=== PATIENT | female | born 1980 | race Native Hawaiian/Other Pacific Islander ===

== ENCOUNTER 2016-11-15 04:51 | Emergency (ER) | payer MEDICAID ==
[~2016-11-15] VITALS: Ht 172.7 cm; Wt 129.3 kg
[2016-11-15 07:16] LABS: Urine RBC None Seen /hpf (0 - 4)
[2016-11-15 07:21] LABS: Basophils # (auto) 0 uL; Basophils % (auto) 0.3 % (0.0-2.0); CONDITION Y; Eosinophils # (auto) 0.5 uL; Hematocrit 43.5 % (36.0-46.0); Hemoglobin 14.4 g/dL (12.2-16.2); Lymphocytes # (auto) 1.7 uL; Lymphocytes % (auto) 19.1 % (10.0-50.0); Mean Corpuscular Hemoglobin 29.3 pg (28.0-32.0); Mean Corpuscular Hgb Conc. 33.2 g/dL (32.0-36.0); Mean Corpuscular Volume 88.3 fL (80.0-100.0); Mean Platelet Volume 9.1 fL (7.4-10.4); Monocytes # (auto) 0.4 uL; Monocytes % (auto) 4.8 % (0.0-12.0); Neutrophils # (auto) 6.4 uL; Neutrophils % (auto) 70.8 % (37.0-80.0); Platelet Count (auto) 298 10^3/uL (140-450); Red Cell Distribution Width 14.1 % (11.6-16.0)
[2016-11-15 07:41] LABS: INR 0.92 (0.9-1.15); Partial Thromboplastin Time 29.2 sec (22.64-33.71)
[2016-11-15 07:43] VITALS: BP 148/104
[2016-11-15 07:48] LABS: Urine Bilirubin Negative (Negative); Urine Blood Negative /uL (Negative); Urine Color Yellow (Yellow); Urine Glucose Normal (Normal); Urine Ketone Negative (Negative); Urine Nitrite Negative (Negative); Urine Squamous Epithelial Cell FEW /hpf (<5); Urine Urobilinogen Normal (Negative); Urine pH 5.5 (5.0-8.0)
[2016-11-15 07:49] LABS: Albumin 3.3 g/dL (3.4-5.0); Amylase 53 U/L (25-115); Anion Gap 8 (5-15); Aspartate Aminotransferase 12 U/L (15-37); BUN/Creatinine Ratio 18.4; Blood Urea Nitrogen 14 mg/dL (7-18); Calcium 8.8 mg/dL (8.5-10.1); Carbon Dioxide 23 mmol/L (21-32); Chloride 111 mmol/L (98-107); GFR African American 111 mL/min; GFR Non-African American 92 mL/min; Glucose 102 mg/dL (74-106); Potassium 4.4 mmol/L (3.5-5.1); Sodium 142 mmol/L (136-145)
[2016-11-15 07:53] LABS: Alkaline Phosphatase 65 U/L (45-117); Bilirubin, Total 0.2 mg/dL (0.2-1.0)
[2016-11-15] MEDS: KETOROLAC TROMETH 60MG/2ML VIAL IM ONE (08:54)
== END 2016-11-15 09:50 | disposition home or self-care (01) ==
LOC: ER 04:51
DX: K80.20 Calculus of gallbladder without cholecystitis without obstruction (principal); N39.0 Urinary tract infection, site not specified; J45.909 Unspecified asthma, uncomplicated; Z87.891 Personal history of nicotine dependence; E66.9 Obesity, unspecified; Z68.41 Body mass index [BMI] 40.0-44.9, adult
CPT/HCPCS: 36415; 71020; 76705; 80053; 81001; 81025; 82150; 83690; 84484; 85025; 85610; 85730; 96372; 99285; J1885

== ENCOUNTER 2018-02-27 02:53 | Emergency (ER) | payer MEDICAID ==
[~2018-02-27] VITALS: Ht 167.6 cm; Wt 172.4 kg
[2018-02-27 03:12] VITALS: BP 165/92
[2018-02-27 05:27] LABS: Alcohol, Urine < 3.0 mg/dL (0-5); Amphetamine Screen, Urine NEGATIVE (NEGATIVE); Barbiturate Scree,Urine NEGATIVE (NEGATIVE); Benzodiazephine Screen, Urine NEGATIVE (NEGATIVE); Cannabinoid Screen, Urine NEGATIVE (NEGATIVE); Cocaine Screen, Urine NEGATIVE (NEGATIVE); Opiate Scree,Urine NEGATIVE (NEGATIVE); Phencyclidine Screen, Urine NEGATIVE (NEGATIVE); Urine Amorphous Crystal FEW /hpf (None Seen); Urine Bacteria FEW /hpf (None Seen); Urine Blood Negative /uL (Negative); Urine Mucus FEW (None Seen); Urine Specific Gravity 1.019 (1.001-1.035); Urine WBC 5 /hpf (0 - 5)
[2018-02-27 05:33] LABS: Urine Pregnacy Test Positive (Negative)
== END 2018-02-27 03:38 | disposition left against medical advice (07) ==
LOC: ER 02:55
DX: O26.893 Other specified pregnancy related conditions, third trimester (principal); R21 Rash and other nonspecific skin eruption; Z3A.32 32 weeks gestation of pregnancy; Z53.21 Procedure and treatment not carried out due to patient leaving prior to being seen by health care provider
CPT/HCPCS: 80307; 81001; 81025

== ENCOUNTER 2019-12-15 20:42 | Inpatient (IN) | payer MEDICAID ==
[~2019-12-15] VITALS: Ht 170.2 cm; Wt 201.5 kg
[2019-12-15] MEDS ORDERED: methylPREDNISolone SOD SUCC 125 MG/2 ML VL IV ONE (21:00)
[2019-12-15 22:26] LABS: Hematocrit 49.2 % (36.0-46.0); Hemoglobin 15.8 g/dL (12.2-16.2); Mean Corpuscular Hemoglobin 28.8 pg (28.0-32.0); Mean Corpuscular Hgb Conc. 32.2 g/dL (32.0-36.0); Mean Corpuscular Volume 89.4 fL (80.0-100.0); Platelet Count (auto) 154 10^3/uL (140-450); White Blood Cell 6.2 10^3/uL (4.4-10.8)
[2019-12-15 22:43] LABS: INR 0.94 (0.9-1.15); Partial Thromboplastin Time 26.2 sec (23.0-31.2)
[2019-12-15 22:44] LABS: Basophils % (manual) 0 (0.0-2.0); Blast Cells 0; Eosinophils % (manual) 0 (0-7); Metamyelocytes % 0; Myelocytes % 0; Promyelocytes % 0; Reactive Lymphocytes 0
[2019-12-15 22:45] LABS: Albumin 3.5 g/dL (3.4-5.0); Anion Gap 8 (5-15); Blood Urea Nitrogen 12 mg/dL (7-18); Calcium 8.4 mg/dL (8.5-10.1); Carbon Dioxide 22 mmol/L (21-32); Chloride 106 mmol/L (98-107); GFR African American 88 mL/min; GFR Non-African American 73 mL/min; Glucose 128 mg/dL (74-106); Potassium 3.7 mmol/L (3.5-5.1); Sodium 136 mmol/L (136-145)
[2019-12-15 22:50] LABS: Alanine Aminotransferase 47 U/L (13-56); Alkaline Phosphatase 72 U/L (45-117); Aspartate Aminotransferase 56 U/L (15-37); Bilirubin, Total 0.4 mg/dL (0.2-1.0); Total Protein 8.4 g/dL (6.4-8.2)
[2019-12-15 23:18] LABS: Band Neutrophils % (manual) 5; Lymphocytes % (manual) 5 (10.0-50.0); Monocytes % (manual) 1 (0-12)
[2019-12-16] MEDS ORDERED: IPRATROPIUM BROM 0.5 MG/2.5ML INH SOL NEB ONE
[2019-12-16] MEDS ORDERED: ALBUTEROL SULF 2.5 MG/0.5ML(0.5%) NEB SOLN NEB ONE
[2019-12-16] MEDS ORDERED: NITROGLYCERIN 0.4 MG SL TAB SL PRN (02:30)
[2019-12-16] MEDS ORDERED: MORPHINE SULF INJ 2 MG/ML SYRINGE 1ML IV PRN (02:30)
[2019-12-16] MEDS ORDERED: TEMAZEPAM 15 MG CAP PO PRN (02:30)
[2019-12-16] MEDS ORDERED: ONDANSETRON HCL 4 MG/2 ML VIAL IV PRN (02:30)
[2019-12-16] MEDS ORDERED: ACETAMINOPHEN 325 MG TAB PO PRN (02:30)
[2019-12-16] MEDS: IPRATROPIUM BROM 0.5 MG/2.5ML INH SOL NEB SCH ×3 (06:54→19:06)
[2019-12-16] MEDS: ALBUTEROL SULF 2.5 MG/0.5ML(0.5%) NEB SOLN NEB SCH ×3 (06:54→19:05)
[2019-12-16] MEDS: BUDESONIDE (INHALATION) 0.5 MG/2 ML NEB NEB SCH ×2 (06:54→19:08)
[2019-12-16] MEDS ORDERED: methylPREDNISolone SOD SUCC 125 MG/2 ML VL IV SCH ×2 (10:00→22:00)
[2019-12-16] MEDS: FAMOTIDINE 20 MG TAB PO SCH ×2 (10:35→22:11)
[2019-12-16] MEDS: ENOXAPARIN SOD 40 MG/0.4 ML SYRINGE SC SCH (10:36)
[2019-12-16 12:42] VITALS: BP 104/57
[2019-12-16] MEDS ORDERED: ALBUTEROL SULF 2.5 MG/0.5ML(0.5%) NEB SOLN NEB PRN (13:00)
[2019-12-16 13:33] LABS: CRP High Sensitivity 5.07 mg/dL (< 0.3)
[2019-12-16 15:21] VITALS: BP 127/68
[2019-12-16] MEDS: HYDROcodone-ACET 5/325MG TAB PO PRN ×2 (15:56→22:11)
[2019-12-16 17:00] VITALS: BP 125/74
[2019-12-16 20:00] VITALS: BP 134/76
[2019-12-16 22:21] VITALS: BP 134/76
[2019-12-17] MEDS: ALBUTEROL SULF 2.5 MG/0.5ML(0.5%) NEB SOLN NEB SCH ×3 (00:31→11:35)
[2019-12-17] MEDS: HYDROcodone-ACET 5/325MG TAB PO PRN ×3 (04:18→18:28)
[2019-12-17 05:42] VITALS: BP 107/56
[2019-12-17 07:03] LABS: Basophils # (auto) 0 10 ^3/uL (0-0.2); Basophils % (auto) 0.3 % (0.0-2.0); Eosinophils # (auto) 0 10 ^3/uL (0-0.8); Hematocrit 46.9 % (36.0-46.0); Hemoglobin 15.4 g/dL (12.2-16.2); Lymphocytes # (auto) 0.5 10 ^3/uL (0.4-5.4); Lymphocytes % (auto) 5.9 % (10.0-50.0); Mean Corpuscular Hemoglobin 29.3 pg (28.0-32.0); Mean Corpuscular Hgb Conc. 32.8 g/dL (32.0-36.0); Mean Corpuscular Volume 89.4 fL (80.0-100.0); Monocytes # (auto) 0.5 10 ^3/uL (0-1.3); Monocytes % (auto) 5.4 % (0.0-12.0); Neutrophils # (auto) 7.3 10 ^3/uL (1.6-8.6); Neutrophils % (auto) 88.4 % (37.0-80.0); Nucleated Red Blood Cells % 0.1 %; Platelet Count (auto) 245 10^3/uL (140-450); Red Blood Cells 5.25 10^6/uL (4.0-5.20); Red Cell Distribution Width 13.9 % (11.8-14.3); White Blood Cell 8.3 10^3/uL (4.4-10.8)
[2019-12-17 07:20] LABS: Magnesium 2.5 mg/dL (1.6-2.6)
[2019-12-17 07:21] LABS: Calcium 8.1 mg/dL (8.5-10.1); Potassium 3.9 mmol/L (3.5-5.1)
[2019-12-17 07:23] LABS: BUN/Creatinine Ratio 20.2
[2019-12-17] MEDS: BUDESONIDE (INHALATION) 0.5 MG/2 ML NEB NEB SCH (07:37)
[2019-12-17] MEDS: IPRATROPIUM BROM 0.5 MG/2.5ML INH SOL NEB SCH ×2 (07:37→11:35)
[2019-12-17 08:00] VITALS: BP 130/60
[2019-12-17 09:00] VITALS: BP 121/74
[2019-12-17] MEDS: FAMOTIDINE 20 MG TAB PO SCH ×2 (09:42→22:12)
[2019-12-17] MEDS: ENOXAPARIN SOD 40 MG/0.4 ML SYRINGE SC SCH (09:42)
[2019-12-17] MEDS ORDERED: methylPREDNISolone SOD SUCC 40 MG/ML VL IV SCH (10:00)
[2019-12-17] MEDS ORDERED: DOXYCYCLINE 100 MG TAB/CAP PO ONE (11:00)
[2019-12-17] MEDS ORDERED: POTASSIUM CHL 20 Meq TABLET PO ONE (11:00)
[2019-12-17] MEDS ORDERED: DEXTROSE (50%) 50ML SYRG IV PRN (11:00)
[2019-12-17] MEDS ORDERED: FUROSEMIDE 20 MG/2 ML VIAL IV ONE (11:00)
[2019-12-17] MEDS ORDERED: DexAMETHasone SOD PHOS 10MG/1ML VIAL INJ IV ONE (11:00)
[2019-12-17] MEDS: InsuLIN REG 1unit/0.01ml Soln (100units/ml) SC SCH ×3 (11:30→22:00)
[2019-12-17] MEDS: ACCU-CHEK COMFORT CURVE STRIP VI SCH ×3 (11:30→22:12)
[2019-12-17 13:00] VITALS: BP 98/65
[2019-12-17 17:00] VITALS: BP 118/78
[2019-12-17 22:00] VITALS: BP 118/73
[2019-12-17] MEDS: ALBUTEROL SULF HFA 90MCG INH 200DOSE IN SCH (22:00)
[2019-12-17] MEDS: BUDESONIDE (INHALATION) 180 MCG IH IN SCH (22:00)
[2019-12-17] MEDS: DOXYCYCLINE 100 MG TAB/CAP PO SCH (22:12)
[2019-12-17] MEDS: ENOXAPARIN SOD 100 MG/1 ML SYRINGE SC SCH (22:12)
[2019-12-18 05:00] VITALS: BP 123/67
[2019-12-18] MEDS: ACCU-CHEK COMFORT CURVE STRIP VI SCH ×4 (06:15→21:59)
[2019-12-18] MEDS: InsuLIN REG 1unit/0.01ml Soln (100units/ml) SC SCH ×4 (06:15→21:59)
[2019-12-18] MEDS: HYDROcodone-ACET 5/325MG TAB PO PRN ×2 (06:16→17:34)
[2019-12-18] MEDS: BUDESONIDE (INHALATION) 180 MCG IH IN SCH ×2 (06:50→22:38)
[2019-12-18] MEDS: ALBUTEROL SULF HFA 90MCG INH 200DOSE IN SCH ×3 (06:50→22:38)
[2019-12-18 09:00] VITALS: BP 123/70
[2019-12-18] MEDS: FUROSEMIDE 20 MG/2 ML VIAL IV SCH (10:04)
[2019-12-18] MEDS: DexAMETHasone SOD PHOS 10MG/1ML VIAL INJ IV SCH (10:04)
[2019-12-18] MEDS: POTASSIUM CHL 10 Meq TABLET PO SCH (10:04)
[2019-12-18] MEDS: ZINC SULFATE 220mg CAP or TAB PO SCH (10:04)
[2019-12-18] MEDS: ENOXAPARIN SOD 100 MG/1 ML SYRINGE SC SCH ×2 (10:05→21:53)
[2019-12-18] MEDS: CHOLECALCIFEROL (VITD3) 1,000UNIT=25mCg TAB PO SCH (10:05)
[2019-12-18] MEDS: FAMOTIDINE 20 MG TAB PO SCH ×2 (10:05→21:53)
[2019-12-18] MEDS: DOXYCYCLINE 100 MG TAB/CAP PO SCH ×2 (10:05→21:53)
[2019-12-18] MEDS: ASCORBIC ACID 500 MG TAB PO SCH (10:05)
[2019-12-18 13:00] VITALS: BP 109/69
[2019-12-18 17:00] VITALS: BP 102/53
[2019-12-18 22:00] VITALS: BP 100/65
[2019-12-19] VITALS (7 sets, daily range): BP systolic 94–112; BP diastolic 58–79
[2019-12-19] MEDS: InsuLIN REG 1unit/0.01ml Soln (100units/ml) SC SCH ×4 (07:00→22:00)
[2019-12-19] MEDS: ACCU-CHEK COMFORT CURVE STRIP VI SCH ×4 (07:10→22:04)
[2019-12-19] MEDS: ALBUTEROL SULF HFA 90MCG INH 200DOSE IN SCH ×3 (08:18→22:05)
[2019-12-19] MEDS: BUDESONIDE (INHALATION) 180 MCG IH IN SCH ×2 (08:18→22:05)
[2019-12-19] MEDS: DOXYCYCLINE 100 MG TAB/CAP PO SCH ×2 (09:13→22:03)
[2019-12-19] MEDS: DexAMETHasone SOD PHOS 10MG/1ML VIAL INJ IV SCH (09:13)
[2019-12-19] MEDS: ZINC SULFATE 220mg CAP or TAB PO SCH (09:13)
[2019-12-19] MEDS: FAMOTIDINE 20 MG TAB PO SCH ×2 (09:13→22:03)
[2019-12-19] MEDS: POTASSIUM CHL 10 Meq TABLET PO SCH (09:13)
[2019-12-19] MEDS: ENOXAPARIN SOD 100 MG/1 ML SYRINGE SC SCH ×2 (09:14→22:02)
[2019-12-19] MEDS: CHOLECALCIFEROL (VITD3) 1,000UNIT=25mCg TAB PO SCH (09:14)
[2019-12-19] MEDS: FUROSEMIDE 20 MG/2 ML VIAL IV SCH (09:14)
[2019-12-19] MEDS: ASCORBIC ACID 500 MG TAB PO SCH (09:14)
[2019-12-19] MEDS ORDERED: REMDESIVIR 200 MG in NS 210ml LOADING DOSE ADULT IV ONE (17:00)
[2019-12-20] MEDS: HYDROcodone-ACET 5/325MG TAB PO PRN (04:17)
[2019-12-20 05:27] VITALS: BP 96/51
[2019-12-20] MEDS: ACCU-CHEK COMFORT CURVE STRIP VI SCH ×4 (06:36→21:51)
[2019-12-20] MEDS: InsuLIN REG 1unit/0.01ml Soln (100units/ml) SC SCH ×4 (06:36→22:00)
[2019-12-20] MEDS: ALBUTEROL SULF HFA 90MCG INH 200DOSE IN SCH ×3 (08:19→22:31)
[2019-12-20] MEDS: BUDESONIDE (INHALATION) 180 MCG IH IN SCH ×2 (08:19→22:31)
[2019-12-20 08:35] LABS: Calcium 8.1 mg/dL (8.5-10.1); Potassium 4.1 mmol/L (3.5-5.1)
[2019-12-20 08:38] LABS: BUN/Creatinine Ratio 28.6; Bilirubin, Total 0.5 mg/dL (0.2-1.0); Total Protein 7.5 g/dL (6.4-8.2)
[2019-12-20 09:00] VITALS: BP 123/73
[2019-12-20] MEDS: POTASSIUM CHL 10 Meq TABLET PO SCH (10:27)
[2019-12-20] MEDS: FUROSEMIDE 20 MG/2 ML VIAL IV SCH (10:27)
[2019-12-20] MEDS: ASCORBIC ACID 500 MG TAB PO SCH (10:27)
[2019-12-20] MEDS: DexAMETHasone SOD PHOS 10MG/1ML VIAL INJ IV SCH (10:27)
[2019-12-20] MEDS: FAMOTIDINE 20 MG TAB PO SCH ×2 (10:27→21:51)
[2019-12-20] MEDS: CHOLECALCIFEROL (VITD3) 1,000UNIT=25mCg TAB PO SCH (10:27)
[2019-12-20] MEDS: DOXYCYCLINE 100 MG TAB/CAP PO SCH ×2 (10:28→21:51)
[2019-12-20] MEDS: ZINC SULFATE 220mg CAP or TAB PO SCH (10:28)
[2019-12-20] MEDS: ENOXAPARIN SOD 100 MG/1 ML SYRINGE SC SCH ×2 (10:28→21:51)
[2019-12-20 13:00] VITALS: BP 112/73
[2019-12-20 17:00] VITALS: BP 129/66
[2019-12-20] MEDS: REMDESIVIR 100mg in NS 230ml DAILYx4DAYS (NO VENT) IV SCH (17:00)
[2019-12-20 21:42] VITALS: BP 110/59
[2019-12-21 05:00] VITALS: BP 113/68
[2019-12-21] MEDS: ACCU-CHEK COMFORT CURVE STRIP VI SCH ×4 (06:58→22:19)
[2019-12-21] MEDS: InsuLIN REG 1unit/0.01ml Soln (100units/ml) SC SCH ×4 (06:59→22:00)
[2019-12-21] MEDS: BUDESONIDE (INHALATION) 180 MCG IH IN SCH ×2 (07:10→22:22)
[2019-12-21] MEDS: ALBUTEROL SULF HFA 90MCG INH 200DOSE IN SCH ×3 (07:10→22:21)
[2019-12-21 08:03] LABS: Basophils # (auto) 0 10 ^3/uL (0-0.2); Basophils % (auto) 0.7 % (0.0-2.0); Eosinophils # (auto) 0 10 ^3/uL (0-0.8); Eosinophils % (auto) 0.3 % (0.0-7.0); Hematocrit 45.9 % (36.0-46.0); Hemoglobin 15.1 g/dL (12.2-16.2); Lymphocytes % (auto) 17.5 % (10.0-50.0); Mean Corpuscular Hemoglobin 29.1 pg (28.0-32.0); Mean Corpuscular Hgb Conc. 32.9 g/dL (32.0-36.0); Mean Corpuscular Volume 88.3 fL (80.0-100.0); Monocytes # (auto) 0.6 10 ^3/uL (0-1.3); Monocytes % (auto) 10.2 % (0.0-12.0); Neutrophils # (auto) 4.3 10 ^3/uL (1.6-8.6); Neutrophils % (auto) 71.3 % (37.0-80.0); Nucleated Red Blood Cells % 0.1 %; Platelet Count (auto) 304 10^3/uL (140-450); Red Cell Distribution Width 13.8 % (11.8-14.3)
[2019-12-21 09:00] VITALS: BP 111/65
[2019-12-21 09:27] VITALS: BP 113/68
[2019-12-21] MEDS: DexAMETHasone SOD PHOS 10MG/1ML VIAL INJ IV SCH (10:03)
[2019-12-21] MEDS: POTASSIUM CHL 10 Meq TABLET PO SCH (10:04)
[2019-12-21] MEDS: CHOLECALCIFEROL (VITD3) 1,000UNIT=25mCg TAB PO SCH (10:04)
[2019-12-21] MEDS: FAMOTIDINE 20 MG TAB PO SCH ×2 (10:04→22:12)
[2019-12-21] MEDS: ASCORBIC ACID 500 MG TAB PO SCH (10:04)
[2019-12-21] MEDS: ZINC SULFATE 220mg CAP or TAB PO SCH (10:04)
[2019-12-21] MEDS: DOXYCYCLINE 100 MG TAB/CAP PO SCH ×2 (10:04→22:12)
[2019-12-21] MEDS: ENOXAPARIN SOD 100 MG/1 ML SYRINGE SC SCH ×2 (10:05→22:12)
[2019-12-21] MEDS: FUROSEMIDE 20 MG/2 ML VIAL IV SCH (10:12)
[2019-12-21 13:00] VITALS: BP 110/64
[2019-12-21 13:29] LABS: CRP High Sensitivity 1.6 mg/dL (< 0.3)
[2019-12-21 14:16] LABS: Alkaline Phosphatase 65 U/L (45-117); Anion Gap 6 (5-15); Aspartate Aminotransferase 28 U/L (15-37); BUN/Creatinine Ratio 25.5; Blood Urea Nitrogen 26 mg/dL (7-18); Carbon Dioxide 24 mmol/L (21-32); Chloride 111 mmol/L (98-107); GFR African American 78 mL/min; GFR Non-African American 64 mL/min; Glucose 86 mg/dL (74-106); Potassium 3.9 mmol/L (3.5-5.1); Sodium 141 mmol/L (136-145)
[2019-12-21 14:17] LABS: Alanine Aminotransferase 40 U/L (13-56); Albumin 3.2 g/dL (3.4-5.0); Bilirubin, Total < 0.1 mg/dL (0.2-1.0); Calcium 8.7 mg/dL (8.5-10.1); Total Protein 7.8 g/dL (6.4-8.2)
[2019-12-21 16:42] VITALS: BP 124/74
[2019-12-21] MEDS: REMDESIVIR 100mg in NS 230ml DAILYx4DAYS (NO VENT) IV SCH (16:45)
[2019-12-21 21:00] VITALS: BP 119/63
[2019-12-22 05:00] VITALS: BP 99/76
[2019-12-22 06:04] LABS: Potassium 3.8 mmol/L (3.5-5.1)
[2019-12-22 06:14] LABS: Albumin 2.8 g/dL (3.4-5.0); Bilirubin, Total 0.5 mg/dL (0.2-1.0); Calcium 8.2 mg/dL (8.5-10.1); Total Protein 6.8 g/dL (6.4-8.2)
[2019-12-22] MEDS: InsuLIN REG 1unit/0.01ml Soln (100units/ml) SC SCH ×4 (06:18→20:51)
[2019-12-22] MEDS: ACCU-CHEK COMFORT CURVE STRIP VI SCH ×4 (06:18→20:41)
[2019-12-22] MEDS: BUDESONIDE (INHALATION) 180 MCG IH IN SCH ×2 (06:50→21:33)
[2019-12-22] MEDS: ALBUTEROL SULF HFA 90MCG INH 200DOSE IN SCH ×3 (06:50→21:33)
[2019-12-22 08:15] VITALS: BP 104/65
[2019-12-22] MEDS: DexAMETHasone SOD PHOS 10MG/1ML VIAL INJ IV SCH (10:25)
[2019-12-22] MEDS: POTASSIUM CHL 10 Meq TABLET PO SCH (10:27)
[2019-12-22] MEDS: FUROSEMIDE 20 MG/2 ML VIAL IV SCH (10:27)
[2019-12-22] MEDS: ZINC SULFATE 220mg CAP or TAB PO SCH (10:27)
[2019-12-22] MEDS: DOXYCYCLINE 100 MG TAB/CAP PO SCH ×2 (10:28→20:40)
[2019-12-22] MEDS: ASCORBIC ACID 500 MG TAB PO SCH (10:28)
[2019-12-22] MEDS: FAMOTIDINE 20 MG TAB PO SCH ×2 (10:28→20:40)
[2019-12-22] MEDS: CHOLECALCIFEROL (VITD3) 1,000UNIT=25mCg TAB PO SCH (10:29)
[2019-12-22] MEDS: ENOXAPARIN SOD 100 MG/1 ML SYRINGE SC SCH ×2 (10:29→20:40)
[2019-12-22 12:02] VITALS: BP 101/71
[2019-12-22] MEDS: REMDESIVIR 100mg in NS 230ml DAILYx4DAYS (NO VENT) IV SCH (17:45)
[2019-12-22] MEDS: HYDROcodone-ACET 5/325MG TAB PO PRN (20:40)
[2019-12-22 22:00] VITALS: BP 109/54
[2019-12-23 05:00] VITALS: BP 100/58
[2019-12-23 05:51] LABS: Potassium 3.7 mmol/L (3.5-5.1)
[2019-12-23 05:58] LABS: Albumin 2.8 g/dL (3.4-5.0); Bilirubin, Total 0.4 mg/dL (0.2-1.0); Calcium 8.2 mg/dL (8.5-10.1); Total Protein 6.6 g/dL (6.4-8.2)
[2019-12-23] MEDS: InsuLIN REG 1unit/0.01ml Soln (100units/ml) SC SCH ×3 (06:02→17:00)
[2019-12-23] MEDS: ACCU-CHEK COMFORT CURVE STRIP VI SCH ×3 (06:02→17:00)
[2019-12-23] MEDS: ALBUTEROL SULF HFA 90MCG INH 200DOSE IN SCH ×2 (06:28→14:18)
[2019-12-23] MEDS: BUDESONIDE (INHALATION) 180 MCG IH IN SCH (06:28)
[2019-12-23 08:17] VITALS: BP 93/63
[2019-12-23] MEDS: FUROSEMIDE 20 MG/2 ML VIAL IV SCH (10:00)
[2019-12-23] MEDS: DexAMETHasone SOD PHOS 10MG/1ML VIAL INJ IV SCH (10:15)
[2019-12-23] MEDS: FAMOTIDINE 20 MG TAB PO SCH (10:18)
[2019-12-23] MEDS: ZINC SULFATE 220mg CAP or TAB PO SCH (10:18)
[2019-12-23] MEDS: POTASSIUM CHL 10 Meq TABLET PO SCH (10:18)
[2019-12-23] MEDS: ASCORBIC ACID 500 MG TAB PO SCH (10:19)
[2019-12-23] MEDS: CHOLECALCIFEROL (VITD3) 1,000UNIT=25mCg TAB PO SCH (10:19)
[2019-12-23] MEDS: ENOXAPARIN SOD 100 MG/1 ML SYRINGE SC SCH (10:19)
[2019-12-23] MEDS: DOXYCYCLINE 100 MG TAB/CAP PO SCH (10:21)
[2019-12-23] MEDS ORDERED: ZINC220T6 PO (11:13)
[2019-12-23] MEDS ORDERED: PANT40TA2 PO (11:13)
[2019-12-23] MEDS ORDERED: POTA1TAB61 PO (11:13)
[2019-12-23] MEDS ORDERED: FURO1TAB33 PO (11:13)
[2019-12-23] MEDS ORDERED: ASCO500T11 PO (11:13)
[2019-12-23] MEDS ORDERED: METH4PAK PO (11:13)
[2019-12-23 12:53] VITALS: BP 113/77
[2019-12-23 13:14] VITALS: BP 113/77
[2019-12-23] MEDS ORDERED: REMDESIVIR 100mg in NS 230ml DAILYx4DAYS (NO VENT) IV SCH (16:00)
[2019-12-23 16:36] VITALS: BP 119/69
== END 2019-12-23 17:30 | disposition home or self-care (01) | DRG 137 ==
LOC: EDBD 20:42 → ER 20:42 → TELE 20:43 → TELE-WESTW 12-16 09:40 → TELE-EAST 12-17 17:49
PROVIDERS: ADMIT Nurse Practitioner; ATTEND Internal Medicine
PROC: XW033E5 Introduction of Remdesivir Anti-infective into Peripheral Vein, Percutaneous Approach, New Technology Group 5 (ICD-10-PCS; principal; 2019-12-19)
PROC: XW033E5 Introduction of Remdesivir Anti-infective into Peripheral Vein, Percutaneous Approach, New Technology Group 5 (ICD-10-PCS; 2019-12-20)
PROC: XW033E5 Introduction of Remdesivir Anti-infective into Peripheral Vein, Percutaneous Approach, New Technology Group 5 (ICD-10-PCS; 2019-12-21)
PROC: XW033E5 Introduction of Remdesivir Anti-infective into Peripheral Vein, Percutaneous Approach, New Technology Group 5 (ICD-10-PCS; 2019-12-22)
PROC: XW033E5 Introduction of Remdesivir Anti-infective into Peripheral Vein, Percutaneous Approach, New Technology Group 5 (ICD-10-PCS; 2019-12-23)
DX: U07.1 COVID-19 (principal); J12.89 Other viral pneumonia; J90 Pleural effusion, not elsewhere classified; E66.01 Morbid (severe) obesity due to excess calories; J96.20 Acute and chronic respiratory failure, unspecified whether with hypoxia or hypercapnia; J45.901 Unspecified asthma with (acute) exacerbation; Z68.43 Body mass index [BMI] 50.0-59.9, adult
CPT/HCPCS: 36415; 71045; 71250; 80048; 80053; 80061; 82728; 82962; 83036; 83615; 83735; 83880; 84484; 84702; 85007; 85025; 85027; 85379; 85610; 85730; 86141; 86850; 86900; 86901; 87426; 93005; 94640; 94762; 96372; 96374; 96375; G0378; J1100